=== PATIENT | male | born 1945 | race Caucasian/White ===

== ENCOUNTER → 2021-02-15 14:49 | Outpatient (CLI) | payer OTHER, SELFPAY ==
[2021-02-15 20:06] LABS: COVID19 -Nasal RAPID Negative (Negative)
== END ==
PROVIDERS: Referring Provider Internal Medicine Gastroenterology; Visit Provider Physician Assistant
DX: Z01.812 Encounter for preprocedural laboratory examination (principal); Z20.822 Contact with and (suspected) exposure to COVID-19
CPT/HCPCS: 87635

== ENCOUNTER 2021-02-16 08:54 | Day surgery (SDC) | payer OTHER, SELFPAY ==
[2021-02-16] VITALS (7 sets, daily range): BP systolic 122–157; BP diastolic 70–86; PULSE 60–79; RESP 14–16; TEMP 36.2–36.4; O2SAT 97–98; BMI 34.7
--- NOTE | 2021-02-16 | PATH_ITS ---
[facility] Accession Number: [id number] . 01 Material submitted: . colon - ASCENDING COLON POLYP X2 . 02 Diagnosis: Ascending Colon Polyps, Biopsies: Fragments of tubular adenoma/tubulovillous adenoma (two polyps removed). Negative for high-grade dysplasia or malignancy. MRV 02/19/2021 1642 Local . 02 Electronically signed: . Faisal Chavez MD, PhD, Pathologist NPI- [id number] . 01 Gross description: . ASCENDING COLON POLYP X2: Received in formalin are multiple fragment(s) of cruz, soft tissue measuring 2.7 x 1.1 x 0.2 cm in aggregate submitted entirely in 1 cassette(s) /KRISTOPHER 02/17/2021 0634 Local . 02 Pathologist provided ICD-10: D12.2 . 02 CPT . 333805 Performed at: 01 [facility] [address] [facility], [place], [place] [id number] MD Trey Spear MD Phone: [phone] Performed at: 02 [facility] [address] [place], [place] [id number] MD Madalyn Ortega MD Phone: [phone]
[2021-02-16] MEDS: LACTATED RINGERS 1,000 ML 100 ML IV (09:50)
--- NOTE | 2021-02-16 11:01 | PM.HP.1 ---
History of Present Illness History of Present Illness Date Patient Seen: 02/16/21 Time Patient Seen: 11:01 Chief complaint: SDC Narrative: asymptomatic. personal hx of colon polyps. I reviewed the clinic note by ELIDA Regalado. No changes. Patient History Medical History Arthritis Heart murmur Hyperlipemia Hypertension Surgical History H/O arthroscopy of shoulder History of laminectomy History of total knee arthroplasty Family & Social History Social History: household members significant other,none Tobacco & Substance use: Smoking Status Never smoker alcohol intake current alcohol intake frequency holiday/special occasion Substance Use Type does not use Meds Home Medications and Allergies Home Medications Medication Instructions Recorded Confirmed Type amlodipine 10 mg tablet 10 mg PO DAILY 02/16/21 02/16/21 History cetirizine 10 mg tablet 10 mg PO DAILY PRN 02/16/21 02/16/21 History cyanocobalamin (vitamin B-12) 1,000 mcg PO DAILY 02/16/21 02/16/21 History 1,000 mcg tablet diclofenac sodium 1 % topical gel 2 g TOPICAL QID 02/16/21 02/16/21 History fluticasone propionate 50 1 spray INTRANASAL DAILY PRN 02/16/21 02/16/21 History mcg/actuation nasal spray,suspension hydrochlorothiazide 50 mg tablet 50 mg PO DAILY 02/16/21 02/16/21 History levothyroxine 125 mcg tablet 125 mcg PO DAILY 02/16/21 02/16/21 History magnesium oxide 420 mg tablet 420 mg PO DAILY 02/16/21 02/16/21 History pravastatin 40 mg tablet 40 mg PO BEDTIME 02/16/21 02/16/21 History sertraline 100 mg tablet 100 mg PO DAILY 02/16/21 02/16/21 History tamsulosin 0.4 mg capsule 0.8 mg PO BEDTIME 02/16/21 02/16/21 History vitamin D3 95 mcg (3,800 1 tab PO DAILY 02/16/21 02/16/21 History unit)-folic acid 1 mg tablet (Cholecal DF) Allergies Allergy/AdvReac Type Severity Reaction Status Date / Time No Known Drug Allergies Allergy Verified 02/16/21 09:25 Review of Systems Review of Systems ROS: Yes All systems reviewed with the patient and are negative except as otherwise documented ENT Comments: reports tinnitus, vertigo, and nose bleeds Exam Vital Signs (past 8 hours): - 02/16/21 09:46 Temperature 97.1 F L Pulse Rate 60 Respiratory Rate 14 Blood Pressure 157/86 H Pulse Oximetry 97 Oxygen Delivery Method Room Air Const General: cooperative and comfortable Orientation: alert HENMT Head: normocephalic Ears: external ears normal Nose: external nose normal Face and sinus: normal facial exam Mouth: oral mucosae normal Eyes General: appearance normal, both eyes and all related structures Neck Neck: normal visual inspection Chest Chest: normal inspection of the chest Resp Effort & Inspection: normal respiratory effort Auscultation: clear to auscultation bilaterally Cardio Rate: regular rate Rhythm: regular rhythm Heart Sounds: no murmurs GI Inspection: normal to inspection Palpation: soft and No tender Auscultation: normal bowel sounds Skin General: no rashes or lesions noted and No jaundice Neuro General: patient alert and moves all extremities Cognition: normal cognition Speech: speech normal Extrem General: edema Psych Appearance: grossly normal Assessment & Plan Assessment & Plan narrative: Personal hx of colon polyps. Colonoscopy today.
--- NOTE | 2021-02-16 11:05 | PM.PREOP ---
Pre-operative Note COVID-19 COVID-19 status: Negative Result date/Date tested (Pos, Neg/Pending): 02/15/21 Interval Note History & Physical reviewed/Exam performed by Physician: Yes Changes to H&P: No ASA Class (for procedural sedation): II
[2021-02-16] MEDS: MIDAZOLAM 5 MG/5 ML VIAL IV (11:13)
[2021-02-16] MEDS: fentaNYL 250 MCG/5 ML INJ IV (11:13)
--- NOTE | 2021-02-16 11:37 | PM.OP.ENDO ---
Operative Date/Time/Diagnoses Date of procedure: 02/16/21 Time of procedure: 11:37 Pre-op diagnosis: polyps Post-op diagnosis: same Procedure & Clinicians Study performed: colonoscopy with hot snare polypectomy Same procedure as scheduled: Yes Indications: colon polyps hx Surgeon: Dae Mcgee Procedure Notes SCOAP/Timeout: Done Procedure in detail: After the risks and benefits were explained, written and verbal informed consent was obtained. The patient was brought into the procedure room and placed into the left lateral decubitus position. Conscious sedation medication was applied as per nursing documentation. Digital rectal examination was accomplished. The scope was introduced into the patient and advanced under direct visualization to the cecum as identified by the appendiceal orifice and ileocecal valve. The scope was slowly withdrawn to carefully examine the mucosa for any defects or lesions. Comprehensive imaging was accomplished throughout the rectum including the dentate line. The colon was decompressed, the scope was then removed from the patient who tolerated the procedure well. prep adequate 3mg versed 75mcg fentanyl Scope withdrawal time: 15min Sedation minutes: 27 Complications: none Impression: There was some mild diverticulosis noted in the sigmoid colon. There were a couple of classic appearing diminutive hyperplastic polyps in the rectosigmoid region. If she in the ascending colon there were [address] of hot snare polypectomy. The larger of the 2 was perhaps 8 mm and pedunculated the smaller was perhaps 5-6 mm and sessile. Both were completely removed and submitted for histopathologic analysis. No additional pathology was appreciated today's exam. Endoscopic diagnosis 1. Colon polyps 2. Diverticulosis 3. Mild hemorrhoids Post-procedure Plan for aftercare: 1. Await histopathology 2. Repeat colonoscopy 5 years. Disposition: PACU
== END 2021-02-16 12:12 | disposition home or self-care (01) ==
PROVIDERS: PCP Internal Medicine; Referring Provider Internal Medicine Gastroenterology; Visit Provider Internal Medicine Gastroenterology
PROC: 0DJD8ZZ Inspection of Lower Intestinal Tract, Via Natural or Artificial Opening Endoscopic (ICD-10-PCS; CPT 45378; principal; 2021-02-16 10:00)
DX: Z12.11 Encounter for screening for malignant neoplasm of colon (principal); Z86.010 Personal history of colon polyps; I10 Essential (primary) hypertension; E78.5 Hyperlipidemia, unspecified; R01.1 Cardiac murmur, unspecified; K57.30 Diverticulosis of large intestine without perforation or abscess without bleeding; K64.9 Unspecified hemorrhoids; D12.2 Benign neoplasm of ascending colon
CPT/HCPCS: 45385; J2250; J3010